=== PATIENT | female | born 1980 | race Caucasian/White ===

== ENCOUNTER 2017-12-28 09:23 | Day surgery (SDC) | payer BC ==
[~2017-12-28 09:23] MED LIST: Bupivacaine 0.5% 30 ML SDV ONE; HYDROmorphone 2 MG/ML SDV ONE; Lactated Ringers 1,000 ML IV SCH; Lidocaine 2% 5 ML SDV ONE; Midazolam 1 MG/ML 2 ML SDV ONE; Ondansetron 4 MG/2 ML SDV ONE; Propofol 200 MG/20 ML SDV ONE; Rocuronium 10 MG/ML 10 ML Syringe ONE; Sodium Chloride 0.9% 10 ML Syringe FLUSH PRN; Sodium Chloride 0.9% 2.5 ML Syringe FLUSH PRN; cefOXitin 1 GM in Premix Bag 1 BAG IV ONE; fentaNYL 100 MCG/2 ML SDV IVPUSH PRN
--- NOTE | 2017-12-28 09:56 | PCM.PREANE ---
Preanesthetic Assessment - Anesthesia/Transfusion/Family Hx Anesthesia History: Prior Anesthesia Without Reaction Family History of Anesthesia Reaction: No Transfusion History: No Prior Transfusion(s) - Review of Systems General: No Symptoms Pulmonary: No Symptoms Cardiovascular: No Symptoms Gastrointestinal: No Symptoms Neurological: No Symptoms Other: Reports: None - Physical Assessment Height: 1.57 m Weight: 58.967 kg ASA Class: 2 Mental Status: Alert & Oriented x3 Airway Class: Mallampati = 2 Dentition: Reports: Normal Dentition Thyro-Mental Finger Breadths: 3 Mouth Opening Finger Breadths: 3 ROM/Head Extension: Full Lungs: Clear to Auscultation, Normal Respiratory Effort Cardiovascular: Regular Rate, Regular Rhythm - Lab Values: Laboratory Last Values Urine HCG, Qual NEGATIVE (NEGATIVE) 12/28/17 09:27 - Allergies Allergies/Adverse Reactions: Allergies Allergy/AdvReac Type Severity Reaction Status Date / Time escitalopram [From Lexapro] Allergy Cannot Verified 12/26/17 09:45 Remember penicillin Allergy Hives Verified 12/26/17 09:38 pregabalin [From Lyrica] Allergy Cannot Verified 12/26/17 09:45 Remember sulfamethoxazole Allergy Cannot Verified 12/26/17 09:45 [From Bactrim] Remember trimethoprim [From Bactrim] Allergy Cannot Verified 12/26/17 09:45 Remember - Blood Blood Available: No - Anesthesia Plan Pre-Op Medication Ordered: None - Acknowledgements Anesthesia Type Planned: General Anesthesia Pt an Appropriate Candidate for the Planned Anesthesia: Yes Alternatives and Risks of Anesthesia Discussed w Pt/Guardian: Yes Pt/Guardian Understands and Agrees with Anesthesia Plan: Yes PreAnesthesia Questionnaire HEENT History: Reports: Other (See Below) Other HEENT History: wears glasses Cardiovascular History: Reports: Heart Murmur Gastrointestinal History: Reports: Hemorrhoids Genitourinary History: Reports: Pyelonephritis [employer] History: Reports: Musculoskeletal History: Reports: Fracture, Fibromyalgia Other Musculoskeletal History: hx of fx finger and wrist Neurological History: Reports: Concussion, Other (See Below) Other Neuro History: hx of motion sickness Psychiatric History: Reports: Anxiety, Depression - Infectious Disease History Infectious Disease History: Reports: Chicken Pox - Past Surgical History HEENT Surgical History: Reports: Oral Surgery Female Surgical History: Reports: D&C - SUBSTANCE USE Smoking Status *Q: Former Smoker Tobacco Use Within Last Twelve Months: No Second Hand Smoke Exposure: No Recreational Drug Use History: No - HOME MEDS Home Medications: Home Meds Acetaminophen with Codeine [Acetaminophen-Cod #3] 1 tab PO ASDIRECTED PRN [History] Docusate Sodium [Colace] 100 mg PO DAILY 12/26/17 [History] Lidocaine 2% [Xylocaine 2% Jelly] 1 applic TOP ASDIRECTED PRN 12/26/17 [History] Nortriptyline HCl [Pamelor] 10 mg PO DAILY 12/26/17 [History] - CURRENT (IN HOUSE) MEDS Current Meds: Current Medications Fentanyl (Sublimaze) 50 mcg IVPUSH .Q5MIN PRN PRN Reason: Pain Lactated Ringer's (Ringers, Lactated) 1,000 mls @ 125 mls/hr IV ASDIRECTED JEANNIE Sodium Chloride (Saline Flush) 10 ml FLUSH ASDIRECTED PRN PRN Reason: Keep Vein Open Sodium Chloride (Saline Flush) 2.5 ml FLUSH ASDIRECTED PRN PRN Reason: Keep Vein Open Discontinued Medications Bupivacaine HCl (Marcaine 0.5%) Confirm Administered Dose 30 ml .ROUTE .STK-MED ONE Stop: 12/28/17 07:28 Hydromorphone HCl (Dilaudid) Confirm Administered Dose 2 mg .ROUTE .STK-MED ONE Stop: 12/28/17 08:35 Cefoxitin Sodium 1 gm/ Premix 50 mls @ 100 mls/hr IV ONETIME ONE Stop: 12/27/17 13:26 Lidocaine (Xylocaine-Mpf 2%) Confirm Administered Dose 5 ml .ROUTE .STK-MED ONE Stop: 12/28/17 08:35 Midazolam HCl (Versed 1 Mg/Ml) Confirm Administered Dose 2 mg .ROUTE .STK-MED ONE Stop: 12/28/17 08:35 Ondansetron HCl (Zofran) Confirm Administered Dose 4 mg .ROUTE .STK-MED ONE Stop: 12/28/17 08:35 Propofol (Diprivan 20 Ml) Confirm Administered Dose 200 mg .ROUTE .STK-MED ONE Stop: 12/28/17 08:35 Rocuronium [place] (Zemuron) Confirm Administered Dose 100 mg .ROUTE .STK-MED ONE Stop: 12/28/17 08:35
[2017-12-28] MEDS ORDERED: Midazolam 1 MG/ML 2 ML SDV IVPUSH ONE (10:10)
[2017-12-28] MEDS ORDERED: Scopolamine 1.5 MG Transdermal Patch TRDERM PRN (10:45)
[2017-12-28] MEDS ORDERED: Gelatin Sponge,Absorbable 12-7 mm Sponge TOP ONE (10:50)
[2017-12-28] MEDS ORDERED: Scopolamine 1.5 MG Transdermal Patch ONE (10:55)
[2017-12-28] MEDS ORDERED: Dexamethasone 4 MG/ML 5 ML MDV ONE (11:30)
[2017-12-28] MEDS ORDERED: diphenhydrAMINE 50 MG/ML SDV ONE (11:30)
[2017-12-28] MEDS ORDERED: Acetaminophen/oxyCODONE 325-10 MG Tab PO PRN (11:51)
--- NOTE | 2017-12-28 11:57 | PCM.OPNOTE ---
- General Post-Op/Procedure Note Date of Surgery/Procedure: 12/28/17 Operative Procedure(s): Hemorrhoid excision Findings: Right and left lateral grade 4 prolapsing hemorrhoids Pre Op Diagnosis: Grade 4 hemorrhoids Post-Op Diagnosis: same Anesthesia Technique: General ET Tube Primary Surgeon: Ginger Camargo EBL in mLs: 10 Condition: Good
[2017-12-28] MEDS ORDERED: Ketorolac 30 MG/ML SDV ONE (13:28)
--- NOTE | 2017-12-28 13:31 | PCM48HPAN ---
Post Anesthesia Note - EVALUATION WITHIN 48HRS OF ANESTHETIC Vital Signs in Normal Range: Yes Patient Participated in Evaluation: Yes Respiratory Function Stable: Yes Airway Patent: Yes Cardiovascular Function Stable: Yes Hydration Status Stable: Yes Pain Control Satisfactory: Yes Nausea and Vomiting Control Satisfactory: Yes Mental Status Recovered: Yes Resp Rate: 10 - COMMENTS/OBSERVATIONS Free Text/Narrative:: no anesthesia problems
[2017-12-28 15:23] VITALS: BP 102/60
--- NOTE | 2017-12-28 21:39 | OR ---
SURGEON: KATHLEEN CARLSON MD DATE OF PROCEDURE: 12/28/2017 PREOPERATIVE DIAGNOSIS: Grade 4 hemorrhoids. POSTOPERATIVE DIAGNOSIS: Grade 4 hemorrhoids. PROCEDURE PERFORMED: Two-column hemorrhoidectomy. ANESTHESIA: General endotracheal anesthesia. FLUIDS: See anesthesia record. EBL: 10 mL. FINDINGS: Right and left lateral hemorrhoidal columns. COMPLICATIONS: None. INDICATIONS: The patient is a 37-year-old female with a known history of hemorrhoidal disease. Approximately a week ago, these became prolapsed and incarcerated. The patient attempted conservative management with slow progress. She came to see me in clinic. On physical exam, she had two columns of prolapsed hemorrhoidal tissue that appeared to be acutely thrombosed and inflamed. We discussed the need for excision of these. We discussed the procedure, expected perioperative course, and risks including bleeding, infection, or damage to surrounding structures including alteration of continence. The patient verbalized understanding and wishes to proceed. PROCEDURE IN DETAIL: The patient was brought into the OR on the OR cart. A time-out was completed verifying the patient's name, age, date of , allergies, and procedure to be performed. General endotracheal anesthesia was induced. The patient was then placed in the prone jovanni-knife position on the operating room table. All bony prominences were appropriately padded. The buttocks and anus were prepped and draped in standard fashion. A digital rectal exam was performed. This was normal other than her hemorrhoidal disease. A proctoscope was inserted and then noted an enlarged column of right lateral posterior and left lateral posterior hemorrhoids. The right lateral hemorrhoids were grasped with a hemostat and elevated off the surrounding mucosa. Needlepoint electrocautery was used to excise these off the overlying tissue. 3-0 chromic suture was then used to close the mucosa. This stitch was run in a locking fashion from proximal to distal and the anoderm skin was closed with a running simple stitch. This was then whip stitched back upon itself so there were no knots on the anoderm. I then turned my attention to the right column of hemorrhoids. I grasped these with a hemostats and elevated this tissue off the underlying mucosa. These were excised and closed in a similar fashion. At the end of my case, the field was irrigated and the wound appeared to be hemostatic. The anoderm was circumferentially anesthetized with 0.5% Marcaine plain. Nerve blocks were performed on either side with 5 mL each of 0.5% Marcaine plain. Fluffs and mesh underwear were placed. The patient was then transferred back to the OR cart, extubated, and taken to PACU in stable condition. AMANDA NORTH /[id number]
== END 2017-12-28 14:38 | disposition home or self-care (01) ==
LOC: MW.SDS 09:23
PROVIDERS: ATTEND Surgery
DX: K64.3 Fourth degree hemorrhoids (principal); F41.9 Anxiety disorder, unspecified; F32.9 Major depressive disorder, single episode, unspecified; Z88.1 Allergy status to other antibiotic agents; Z88.8 Allergy status to other drugs, medicaments and biological substances; Z88.0 Allergy status to penicillin; Z79.899 Other long term (current) drug therapy; Z87.891 Personal history of nicotine dependence
CPT/HCPCS: 46260; 81025; A9270; J0694; J1100; J1170; J1200; J1885; J2250; J2405; J7120; J2704